=== PATIENT | female | born 1985 | race African-American/Black ===

== ENCOUNTER → 2020-04-07 | Outpatient (CLI) | payer MEDICAID ==
[~2020-04-07] MED LIST: AMOX125S12; CLINDAMYCIN; IBUPROFEN
== END | disposition home or self-care (01) ==
LOC: LAB 10:41
DX: Z20.828 Contact with and (suspected) exposure to other viral communicable diseases (principal); D69.6 Thrombocytopenia, unspecified; D64.9 Anemia, unspecified
CPT/HCPCS: C9803; U0003